=== PATIENT | male | born 2000 | race Caucasian/White ===

== ENCOUNTER 2022-04-26 00:30 | Emergency (ER) | payer MEDICAID ==
[~2022-04-26] VITALS: Ht 167.6 cm; Wt 78.0 kg
[2022-04-26 01:03] VITALS: BP 124/60
[2022-04-26] MEDS ORDERED: IBUP-2029 MT (05:26)
== END 2022-04-26 05:38 | disposition home or self-care (01) ==
LOC: ER 00:30
DX: M25.521 Pain in right elbow (principal)
CPT/HCPCS: 73060; 73080; 99284